=== PATIENT | female | born 1970 | race Caucasian/White ===

== ENCOUNTER 2022-03-03 15:37 | Emergency (ER) | payer OTHER, SELFPAY ==
[2022-03-03 15:38] VITALS: BP 141/79; PULSE 86; RESP 18; TEMP 36.6; O2SAT 98; BMI 29.2
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
--- NOTE | 2022-03-03 16:46 | RAD_ITS ---
INDICATION: fall EXAMINATION/TECHNIQUE: X-RAY - XR Spine Lumbar 2 or 3 Views COMPARISON: None. FINDINGS: VERTEBRAE: Preserved vertebral body height. There is normal alignment, no fracture subluxation or destructive bony process noted. Marginal osteophyte formation is present. Moderate facet hypertrophic changes from L3 to S1. The sacrum and sacroiliac joints have normal appearance. Visualized pelvic ring is intact. DISCS: Mild lumbar spondylosis, marginal osteophyte formation noted. No malalignment. INDICATION: fall EXAMINATION/TECHNIQUE: X-RAY - XR Spine Lumbar 2 or 3 Views COMPARISON: None. FINDINGS: VERTEBRAE: Preserved vertebral body height. There is normal alignment, no fracture subluxation or destructive bony process noted. Marginal osteophyte formation is present. Moderate facet hypertrophic changes from L3 to S1. The sacrum and sacroiliac joints have normal appearance. Visualized pelvic ring is intact. INCLUDED ABDOMEN: Included bowel gas pattern is non-obstructive. RAD/Lumbar Spine 2 or 3 Views IMPRESSION: 1. Mild multilevel lumbar spondylosis, marginal osteophyte formation is noted at multiple levels. Facet arthropathy from L3 to S1. 2. No fracture, subluxation or destructive bony process noted. Electronically Signed: Latrell Sexton MD at 17:29 [facility] ,
--- NOTE | 2022-03-03 16:46 | RAD_ITS ---
INDICATION: fall EXAMINATION/TECHNIQUE: X-RAY - LEFT XR Hip Unilateral with Pelvis when performed; 2-3 Views 3 VIEWS COMPARISON: None. FINDINGS: SOFT TISSUES: No soft tissue swelling or gas. No radiopaque foreign body. BONES/JOINTS: No acute fracture or subluxation.. Normal alignment. Preservation of the joint space.. No sclerotic or destructive changes observed. There is normal appearance of visualized sacrum, sacroiliac joints and pelvic ring. RAD/HIP, UNI W/ Pelvis 2-3 Views IMPRESSION: 1. No evidence fracture malalignment or dislocation. 2. Pelvic ring is intact. Electronically Signed: Latrell Sexton MD at 17:30 EST ,
[2022-03-03] MEDS: Acetaminophen 325 MG Tablet 650 MG PO (17:07)
[2022-03-03 18:28] VITALS: BP 139/87; PULSE 85; RESP 16; O2SAT 98
== END 2022-03-03 18:29 | disposition home or self-care (01) ==
PROVIDERS: Emergency Provider Emergency Medicine; PCP Family Medicine; Visit Provider Emergency Medicine
DX: M25.552 Pain in left hip (principal); M54.9 Dorsalgia, unspecified
CPT/HCPCS: 72100; 73502; 99283